=== PATIENT | male | born 1995 ===

== ENCOUNTER → 2021-12-25 09:43 | Outpatient (BNVA) | payer OTHER, SELFPAY | PROVIDERS: Visit Provider Internal Medicine | DX: T65.91XA Toxic effect of unspecified substance, accidental (unintentional), initial encounter (principal); T26.61XA Corrosion of cornea and conjunctival sac, right eye, initial encounter | CPT/HCPCS: 92004; 99203 ==

== ENCOUNTER 2022-06-25 15:43 | Emergency (ER) | payer SELFPAY ==
--- NOTE | ~2022-06-25 | XR_ITS ---
EXAMINATION: XR KNEE, RIGHT CLINICAL INFORMATION: Fell on back of the knee while playing basketball COMPARISON: None available. TECHNIQUE: Four views of the right knee. FINDINGS: Bones and soft tissues are unremarkable aside from the presence of a small knee joint effusion. No fracture. Alignment is anatomic. Joint spaces are well maintained. No abnormal soft tissue calcification. XR/XR knee RT 3V IMPRESSION: Small knee joint effusion. No evidence of an acute osseous injury.
[2022-06-25 17:30] VITALS: BP 151/80; PULSE 90; RESP 18; TEMP 37.1; O2SAT 99; BMI 33.9
[2022-06-25 19:32] VITALS: BP 148/88; PULSE 89; RESP 20; TEMP 36.9; O2SAT 99
--- NOTE | 2022-06-25 19:42 | ED.GENADULT ---
HPI - General Adult General Chief complaint: Extremity Injury, Lower Stated complaint: right knee injury Time Seen by Provider: 06/25/22 19:14 Source: patient, RN notes reviewed and old records reviewed Mode of arrival: ambulatory Limitations: no limitations History of Present Illness HPI narrative: 27-year-old male presents for evaluation of right posterior knee pain. patient reports that he was playing flag football 2 days ago. He and his opponent fell to the ground as they were blocking each other patient reports that while he was lying on his stomach, another opponent tripped and fell onto the back of his right leg at approximately the level of his knee. he reports increasing pain and swelling ever since. His pain was worse after standing on his feet all day at work Related Data Previous Rx's Medication Instructions Recorded ibuprofen 600 mg tablet 600 mg PO TID PRN pain #20 tabs 06/25/22 Allergies Allergy/AdvReac Type Severity Reaction Status Date / Time No Known Allergies Allergy Unverified 11/04/19 16:16 Review of Systems Constitutional: Constitutional: Reports as per HPI, Denies chills and Denies fever(s) Musculoskeletal: Musculoskeletal: Reports arthralgias, Reports joint swelling and Reports limited range of motion PMFSH Social History Social History Advance Directives: No Advance Directives Information Provided: Yes Physical Exam ED Vital Signs: Vital Signs - 24 hr 06/25/22 17:30 06/25/22 19:32 Temperature 98.8 F 98.5 F Pulse Rate 90 89 Respiratory Rate 18 20 Blood Pressure 151/80 H 148/88 H Pulse Oximetry 99 99 Oxygen Delivery Method Room Air Room Air BMI result Body Mass Index 33.9 Const General: healthy appearing, comfortable, no acute distress, alert and awake Nutritional Appearance: well nourished Orientation/consciousness: patient oriented x3 Skin General skin exam: no rashes or lesions noted and elasticity normal Neuro General: patient oriented x3 Cranial nerves: Yes Bilaterally intact EOM present Cognition (Neuro): normal cognition Extrem Other: moderate right knee joint effusion, no laxity with anterior drawer testing. No valgus or varus strain. Patient has tenderness to palpation of the right posterior knee Medical Decision Making Medical Decision Making MDM Narrative: patient has injury to the right knee. X-ray negative for acute fracture. He has no physical exam findings to suggest ligamentous injury. We will proceed with symptomatic treatment with ibuprofen. He will use ice, rest and stay off his feet for next 2 days. he does not have a PCP to follow up with, so I will give him a referral to orthopedics if his symptoms do not improve within 1 week Differential Diagnosis knee sprain Contusion Patellar fracture Ligamentous injury Independent Interpretation I performed an independent interpretation of an: Plain X-Ray Interpretation: no obvious bony abnormality. There is a small metallic foreign body apparently in the soft tissue Discharge Plan Discharge Clinical Impression: Acute pain of right knee Patient Disposition: Home, Self-Care Instructions: Knee Pain (ED) Additional Instructions: your x-ray did not show any bony abnormalities to suggest fracture. it is possible that you have a ligamentous injury use ibuprofen, ice, elevation for the next 5 days avoid standing or walking for extended periods follow-up with orthopedics if her symptoms do not improve within 1 week your x-ray did show a small metallic foreign body that looked like a BB in the soft tissue Prescriptions: New ibuprofen 600 mg tablet 600 mg PO TID PRN (Reason: pain) Qty: 20 0RF Referrals: Andrea Mendoza MD [Physician] - (right knee injury. negative x-rays) Stand Alone Forms: Work/School Release
[2022-06-25] MEDS: Ibuprofen 600 MG TABLET PO (20:04)
== END 2022-06-25 20:11 | disposition home or self-care (01) ==
PROVIDERS: Emergency Provider Internal Medicine
DX: G89.11 Acute pain due to trauma (principal); M25.561 Pain in right knee; M25.461 Effusion, right knee
CPT/HCPCS: 73562; 99283; 99284